=== PATIENT | male | born 1990 | race Caucasian/White ===

== ENCOUNTER 2024-02-06 09:16 | Outpatient (CLI) | payer OTHER, SELFPAY ==
[2024-02-19 14:50] VITALS: BMI 27.3
--- NOTE | 2024-02-19 14:50 | WPDHOMESLEEP ---
Sleep Study - Home Unattended Date of Study: 02/06/24 Ordering Provider: Patrice Delgado MD Interpreting Provider: Selena Alfaro, DO Home Sleep Study Type: Watch PAT Height: 1.93 m Weight: 102.058 kg Body Mass Index: 27.3 Neck Circumference (inches): 15.5 [place]: 17 Reason for Sleep Study Daytime hypersomnia Sleep History The patient is a 34-year-old male that had a sleep study ordered by his primary care physician for evaluation of sleep apnea.? He denies awakening from sleep short of breath.? He denies awakening at night with heartburn, belching or cough.? Sleep frequently snores and is frequently loud enough that others complain.? He occasionally has trouble sleeping when he has a cold.? He denies waking up gasping for air throughout the night.? He rarely has breathing problems at night observed by himself or others.? He frequently sweats excessively at night.? He denies having heart palpitations or irregular heartbeats during the night.? He occasionally falls asleep during the day but never while driving.? He denies sleep paralysis, cataplexy and hypnagogic/hypnopompic hallucinations.? He frequently has trouble at school or work due to sleepiness.? He denies feeling afraid of going sleep.? He denies having nightmares.? He occasionally remembers his dreams.? He frequently has thoughts racing through his mind.? He denies feeling sad or depressed.? He frequently has anxiety.? He denies having muscular tension.? He denies noticing parts of his body jerk.? He denies kicking during the night.? He denies having crawling and aching feelings in his legs and denies having leg pain during the night.? He rarely grinds his teeth during sleep but never awakens with morning jaw pain.? He is constantly bothered by pain during the day and occasionally awakened by pain during the night.? He constantly wakes up feeling stiff in the morning.? He rarely wakes up with sore or achy muscles.? He rarely wakes up with pain in the neck, spine and other joints.? He goes to bed between 7-10 p.m. on weekdays and between 7-8 p.m. on the weekends.? It takes him 30 minutes to fall asleep.? He wakes up 2-3 times throughout the night to urinate and is able to fall back asleep within 10 minutes.? He wakes up between 4-5 a.m. on weekdays and between 7-8 a.m. on the weekends.? He typically gets 6-7 hours of sleep per night.? He will stay in bed for 1 hour after waking up in the morning.? He currently lives with his and child.? He denies consuming any caffeinated beverages within 2 hours of bedtime.? He will engage in physical exercise before bedtime.? He will watch television before falling asleep.? He will take naps in the afternoon or the evening female are refreshing.? He consumes 1 caffeinated beverage per day. He denies tobacco, alcohol or recreational drug use. FORMERLY [facility] Past Medical History Medical History Healthy male adult Social History Social History Smoking status: Never smoker Gender identity (if verbalized by the patient): Male Medications Home Medications Medication Instructions Recorded Confirmed Type No Home Medications 01/17/24 01/17/24 History Sleep Procedure The sleep study was completed using StarShooterT a technically adequate device with seven channels: peripheral arterial tone, actigraphy, body position, snore, respiratory movement, pulse oximetry, sleep staging, and heart rate. Prior to using the device, the patient received verbal and written instructions for its application and was provided with the help desk phone number for additional telephonic instruction with 24-hour availability of qualified personnel to answer questions. The study was scored using CMS guidelines. Sleep Architecture The total recording time is 8 hrs, 47 min. The total sleep time is 6 hrs, 54 min. Sleep latency is 46 minutes. REM latency is 88 min
== END 2024-02-07 07:00 | disposition home or self-care (01) ==
LOC: ANHCSM 09:17
PROVIDERS: PCP Emergency Medicine; Visit Provider Emergency Medicine
DX: G47.30 Sleep apnea, unspecified (principal); G47.33 Obstructive sleep apnea (adult) (pediatric)
CPT/HCPCS: 95800

== ENCOUNTER 2024-02-22 08:29 | Outpatient (CLI) | payer OTHER, SELFPAY ==
[2024-02-22 15:30] LABS: Basophils Absolute Auto 0.1 K/mm3 (0.0-0.1); Basophils Percent Auto 0.7 % (0.2-1.2); Eosinophils Absolute Auto 0.7 K/mm3 (0-0.3); Eosinophils Percent Auto 8.5 % (0-4.4); Hematocrit 44.5 % (42.0-52.0); Hemoglobin 15.4 g/dL (14.0-18.0); Immature Granulocyte Absolute 0.06 K/mm3 (0.00-0.031); Immature Granulocyte Percent A 0.8 % (0-0.5); Lymphocytes Percent Auto 27.6 % (18.3-44.2); Mean Corpuscular HGB Conc 34.6 g/dl (32-36); Mean Corpuscular Hemoglobin 31.3 pg (26-34); Mean Corpuscular Volume 90.4 fl (80-100); Mean Platelet Volume 11.2 fl (7.4-10.4); Monocytes Absolute Auto 0.7 K/mm3 (0.1-0.6); Monocytes Percent Auto 8.7 % (2.6-8.5); Neutrophils Absolute Auto 4.1 K/mm3 (1.3-6.7); Neutrophils Percent Auto 53.7 % (45.5-73.1); Platelet Count Result 241 k/mm3 (150-375); Red Blood Count 4.92 M/mm3 (4.6-6.20); Red Cell Distribution Width 11.9 % (11.5-14.5); White Blood Count 7.6 K/mm3 (4.5-10.0)
[2024-02-22 15:37] LABS: Vitamin D 25 Hydroxy 33.7 ng/mL
[2024-02-22 15:50] LABS: Thyroid Stimulating Hormone Reflex 0.561 uIU/mL (0.465-4.68)
[2024-02-22 16:04] LABS: Alanine Aminotransferase 22 U/L (6-50); Albumin Level 4.6 g/dL (3.5-5.1); Alkaline Phosphatase 98 U/L (38-126); Anion Gap 8 mmol/L (4-12); Aspartate Amino Transferase 34 U/L (17-59); Bilirubin,Total 0.7 mg/dL (0.2-1.3); Blood Urea Nitrogen 12 mg/dL (9-20); Calcium 9.3 mg/dL (8.4-10.2); Carbon Dioxide 31 mmol/L (22-30); Chloride 102 mmol/L (98-107); Cholesterol 199 mg/dL (0-200); Estimated Glomerular Filt Rate > 60; Glucose 89 mg/dL (65-110); HDL Direct 53 mg/dL; Potassium 4.4 mmol/L (3.4-5.0); Sodium 141 mmol/L (137-145); Triglycerides 134 mg/dL (<150)
[2024-02-22 16:40] LABS: LDL Cholesterol Direct 125 mg/dL
[2024-02-24 23:43] LABS: Testosterone Total 469 ng/dL (250-1100)
== END 2024-02-22 08:30 | disposition home or self-care (01) ==
LOC: ANHGOSHLAB 08:30
PROVIDERS: PCP Emergency Medicine; Visit Provider Emergency Medicine
DX: R53.83 Other fatigue (principal); Z13.220 Encounter for screening for lipoid disorders
CPT/HCPCS: 36415; 80053; 80061; 82306; 82607; 84403; 84443; 85025

== ENCOUNTER 2024-07-23 21:24 | Emergency (ER) | payer OTHER, SELFPAY ==
[2024-07-23] VITALS (10 sets, daily range): BP systolic 127–147; BP diastolic 74–93; PULSE 97–107; RESP 12–22; TEMP 36.6; O2SAT 92–98
--- NOTE | ~2024-07-23 | XR_ITS ---
EXAMINATION: XR chest 2V DATE: 07/23/2024 22:47 INDICATION: Dyspnea. TECHNIQUE: Frontal and lateral views of the chest were obtained. COMPARISON: None. FINDINGS: A calcified left lung nodule is consistent with old granulomatous disease. There is no pneu monia, pleural effusion, or pneumothorax. The heart size is normal. There are changes of anterior fus ion procedure in cervical spine. IMPRESSION: 1. No acute cardiopulmonary disease. Reviewed, dictated and finalized at location [facility]
--- NOTE | 2024-07-23 22:35 | ECG_ITS ---
Test Date: 2024-07-23 23:06:15 Measurements Intervals [place] Rate: 94 P: 28 AL: 154 QRS: -38 QRSD: 94 T: 49 QT: 336 QTc: 421 Interpretive Statements SINUS RHYTHM LEFT AXIS DEVIATION DELAYED PRECORDIAL R/S TRANSITION BORDERLINE ECG No previous ECG available for comparison Electronically Signed On 07-24-2024 05:57:59 ACADEMIC DEAN by Dru Krishna D.O.
--- NOTE | 2024-07-23 22:36 | ED_ITS ---
HPI - SOB/Dyspnea General Chief Complaint: Shortness of Breath/Dyspnea Stated Complaint: SOB, fever, body aches Time Seen by Provider: 07/23/24 22:28 History of Present Illness HPI Narrative: 34-year-old male with history of JOSE presents to the emergency department for generalized body aches, fever of 100? at home, shortness of breath that started this morning. Patient states he felt mildly short of breath this morning, however when he took a nap this afternoon he woke up in a panic feeling like he could not catch his breath. He does have a history of JOSE but does not uses CPAP. He denies lower extremity edema, cough, hemoptysis, recent surgeries or hospitalizations, history of VTE. He is not on hormones. he is also reporting chest pressure in the center of his chest that is constant . States the chest pain is worse to touch, otherwise no aggravating or alleviating factors. Denies personal or family history of cardiac disease or CVA. He does not smoke. He is also reporting a small red irritated area to his right hip/lower abdomen for the past few days. No drainage from the area. Related Data Allergies Allergy/AdvReac Type Severity Reaction Status Date / Time atomoxetine [From Strattera] Allergy Unknown Verified 07/23/24 21:27 Review of Systems 2 Review of Systems: All systems reviewed & are unremarkable except as noted in HPI and below PMFSH Past Medical History Medical History Healthy male adult Social History Social History Smoking status: Never smoker Gender identity (if verbalized by the patient): Male Exam Narrative: GENERAL: Well-appearing, well-nourished, and in no acute distress. Anxious HEAD: Normocephalic, atraumatic. EYES: EOMI. ENT: Nares clear, no rhinorrhea or epistaxis. Mucous membranes moist. NECK: Supple. CHEST: Clear to auscultation. No respiratory distress. tenderness to the costosternal borders with no overlying skin changes HEART: Regular rate and rhythm. No murmur heard. Normal peripheral pulses. ABDOMEN: Soft, nontender, nondistended, normal active bowel sounds. EXTREMITIES: Normal range of motion. No edema. negative Homans bilaterally SKIN: pustule with 1 cm of surrounding erythema and warmth. No spontaneous drainage. No crepitus, no fluctuance, no induration NEURO: No focal deficits. Alert and oriented x3 Course Vital Signs Vital signs: Vital Signs Temperature 97.8 F 07/23/24 21:33 Pulse Rate 107 H 07/23/24 21:33 Respiratory Rate 18 07/23/24 21:33 Blood Pressure 144/93 H 07/23/24 21:33 Pulse Oximetry 98 07/23/24 21:33 Oxygen Delivery Room Air 07/23/24 21:33 Temperature 97.8 F 07/23/24 21:33 Pulse Rate 94 07/24/24 00:11 Respiratory Rate 13 07/24/24 00:11 Blood Pressure 127/74 07/23/24 22:51 Pulse Oximetry 95 07/24/24 00:12 Oxygen Delivery Room Air 07/24/24 00:12 MDM - SOB/Dyspnea MDM Narrative Medical decision making narrative: 34-year-old male with history of JOSE presents to the emergency department for multiple medical complaints including chest pressure, shortness of breath, body aches, lesion to his right 5th/abdomen. Triage vitals a tachycardia 107 which has since resolved. He is afebrile nontoxic appearing. He is satting 90% on room air no respiratory distress. Lung sounds are clear. Chest wall is tender to palpation. On exam he is found have a possible with 1 cm surrounding erythema and warmth consistent with cellulitis. Will provide topical antibiotics for this. While obtaining lab work, chest x-ray, EKG patient reported to nursing staff that he felt increasingly more short of breath. the patient was placed on 2 L nasal cannula for comfort by nursing staff. I evaluated the patient at bedside. His respiratory rate has been normal at 18 and his oxygen has been stable at 97% without O2. he appears anxious which is suspect is part of the source of his shortness of breath. Will provide IV Ativan pending remainder workup. CBC shows no leukocytosis or anemia. Chemistries are unremarkable. UA is unremarkable. COVID, flu and RSV are negative. Chest x-ray shows no acute cardiopulmonary findings. EKG shows sinus rhythm, normal FL interval, normal QRS duration, normal QTC, no ischemic changes. Troponin is undetectable. D- dimer within normal limits, wells score is low risk. COVID, flu RSV are negative. patient and family updated on workup. Upon re-evaluation he is resting comfortably in exam bed. Oxygen saturations are 95% on room air in no respiratory distress. He received IV Toradol and Ativan with improvement. Suspect combination of URI/ costochondritis/ anxiety/ noncompliance with CPAP. Advised to use the CPAP, will provide ibuprofen and advised follow-up with his PCP. strict ED return precautions discussed. He is agreeable to plan verbalized understanding. Discharged in stable condition Lab Data 07/23/24 23:42 07/23/24 23:42 Labs: Lab Results 07/23/24 Range/Units 23:42 WBC 7.4 (4.5-10.0) K/mm3 RBC 5.59 (4.6-6.20) M/mm3 Hgb 16.4 (14.0-18.0) g/dL Hct 46.9 (42.0-52.0) % MCV 83.9 (80-100) fl MCH 29.3 (26-34) pg MCHC 35.0 (32-36) g/dl RDW 13.1 (11.5-14.5) % Plt Count 179 (150-375) k/mm3 MPV 10.3 (7.4-10.4) fl Immature Gran % (Auto) 0.4 (0-0.5) % Neut % (Auto) 83.3 H (45.5-73.1) % Lymph % (Auto) 7.1 L (18.3-44.2) % [place] % (Auto) 7.9 (2.6-8.5) % Eos % (Auto) 1.0 (0-4.4) % Baso % (Auto) 0.3 (0.2-1.2) % Lymph # (Auto) 0.52 L (0.9-3.2) K/mm3 [place] # (Auto) 0.6 (0.1-0.6) K/mm3 Eos # (Auto) 0.1 (0-0.3) K/mm3 Baso # (Auto) 0.0 (0.0-0.1) K/mm3 Abs Immat Gran (auto) 0.03 (0.00-0.031) K/mm3 Absolute Neuts (auto) 6.1 (1.3-6.7) K/mm3 Absolute Nucleated RBC 0.000 (0.0-0.012) K/mm3 Nucleated RBC % 0.0 (0.0-0.2) % PT 13.4 (11.1-14.7) Seconds INR 1.0 APTT 28.6 (22.3-36.8) Seconds D-Dimer 0.39 (<0.48) ug/mL Sodium 132 L (137-145) mmol/L Potassium 4.0 (3.4-5.0) mmol/L Chloride 97 L (98-107) mmol/L Carbon Dioxide 27 (22-30) mmol/L Anion Gap 8 (4-12) mmol/L BUN 18 (9-20) mg/dL Creatinine 0.90 (0.7-1.3) mg/dL Estim Creat Clear Calc 123 ml/min Estimated GFR > 60 (59 - ) Glucose 106 (65-110) mg/dL Calcium 8.5 (8.4-10.2) mg/dL Total Bilirubin 0.8 (0.2-1.3) mg/dL AST 33 (17-59) U/L ALT 42 (6-50) U/L Alkaline Phosphatase 83 (38-126) U/L Troponin I < 0.012 (0.000-0.034) ng/mL NT-Pro-B Natriuret Pep < 20 (19.9-100) pg/mL Total Protein 7.0 (6.3-8.2) g/dL Albumin 4.2 (3.5-5.1) g/dL Urine Color Yellow (Yellow) Urine Appearance Clear (Clear) Urine pH 6.5 (5.0-9.0) Ur Specific [place] 1.015 (1.001-1.035) Urine Protein Negative (Negative) mg/dL Urine Glucose (UA) Negative (Negative) mg/dL Urine Ketones Negative (Negative) mg/dL Ur Blood (Man) Negative (Negative) Urine Nitrate Negative (Negative) Urine Bilirubin Negative (Negative) Urine Urobilinogen 0.2 (<2.0) mg/dL Leukocyte Esterase Rfl Negative (Negative) CHRISTOS/UL Influenza A (RT-PCR) Negative (Negative) Influenza B (RT-PCR) Negative (Negative) RSV (RT-PCR) Negative (Negative) SARS-CoV-2 RNA (RT-PCR) Negative (Negative) Discharge Plan Discharge Clinical Impression: JOSE (obstructive sleep apnea), Viral upper respiratory infection, C ostochondritis, Folliculitis Patient Disposition: Home, Self-Care Condition: Stable Instructions: Antibiotic Form, Costochondritis (DC), Upper Respiratory Infection (ED), Folliculitis (ED) Additional Instructions: please use your CPAP as directed. Take ibuprofen as needed for chest wall pain. Follow-up with your primary care provider. Use the antibiotic ointment on the area of redness. Return to the emergency department if you develop a fever, worsening chest pain or shortness of breath or other concerning symptoms. Prescriptions: New mupirocin 2 % ointment 1 applic topical BID Qty: 15 0RF ibuprofen 800 mg tablet 800 mg PO Q6H PRN (Reason: pain) Qty: 20 0RF No Action (DME) Resmed AirSense AutoPAP See Rx Instructions .Route .MEDSUPPLY Qty: 1 0RF Rx Instructions: Resmed AirSense 11 AutoPAP 5-15 cm H2O, CPAP mask/filters/tubing and heated humidity. acyclovir 800 mg tablet 800 mg PO TID Qty: 21 0RF Follow-up/Referrals: Patrice Delgado MD [Primary Care Provider] - Quality HEART score for chest pain patients History: slightly suspicious ECG: normal Age: < or = to 45 years Risk factors: no risk factors known Troponin: < or = to 1x normal limit Heart score: 0
--- NOTE | 2024-07-23 22:53 | PC.NURSE ---
PT on 2L O2. pt at 95% on room air. EDP made aware.
[2024-07-23] MEDS: LORazepam INJ (*CRX) 2 MG/ML VIAL 0.5 MG IV PUSH (23:17)
[2024-07-23] MEDS: KETOROLAC 30 MG/ML VIAL (*BKC) IV PUSH (23:19)
[2024-07-23 23:49] LABS: Basophils Percent Auto 0.3 % (0.2-1.2); Eosinophils Absolute Auto 0.1 K/mm3 (0-0.3); Hematocrit 46.9 % (42.0-52.0); Hemoglobin 16.4 g/dL (14.0-18.0); Immature Granulocyte Absolute 0.03 K/mm3 (0.00-0.031); Immature Granulocyte Percent A 0.4 % (0-0.5); Lymphocytes Absolute Auto 0.52 K/mm3 (0.9-3.2); Lymphocytes Percent Auto 7.1 % (18.3-44.2); Mean Corpuscular Hemoglobin 29.3 pg (26-34); Mean Corpuscular Volume 83.9 fl (80-100); Mean Platelet Volume 10.3 fl (7.4-10.4); Monocytes Absolute Auto 0.6 K/mm3 (0.1-0.6); Monocytes Percent Auto 7.9 % (2.6-8.5); Neutrophils Absolute Auto 6.1 K/mm3 (1.3-6.7); Neutrophils Percent Auto 83.3 % (45.5-73.1); Platelet Count Result 179 k/mm3 (150-375); Red Blood Count 5.59 M/mm3 (4.6-6.20); Red Cell Distribution Width 13.1 % (11.5-14.5); White Blood Count 7.4 K/mm3 (4.5-10.0)
[2024-07-23 23:59] LABS: Add Urine Microscopic? NO; Appearance Urine Clear (Clear); Bilirubin Urine Negative (Negative); Blood Urine Negative (Negative); Color Urine Yellow (Yellow); Glucose Urine UA Negative (Negative); Ketones Urine Negative (Negative); Leukocyte Esterase Ur Negative LEU/UL (Negative); Nitrate Urine Negative (Negative); Protein Urine Negative (Negative); Specific Grav Ur 1.015 (1.001-1.035); Urobilinogen Urine 0.2 mg/dL (<2.0); pH Urine 6.5 (5.0-9.0)
[2024-07-24] LABS: Prothrombin Time 13.4 Seconds (11.1-14.7)
[2024-07-24 00:01] LABS: Partial Thromboplastin Time 28.6 Seconds (22.3-36.8)
[2024-07-24 00:10] LABS: Alanine Aminotransferase 42 U/L (6-50); Albumin Level 4.2 g/dL (3.5-5.1); Alkaline Phosphatase 83 U/L (38-126); Anion Gap 8 mmol/L (4-12); Aspartate Amino Transferase 33 U/L (17-59); Bilirubin,Total 0.8 mg/dL (0.2-1.3); Blood Urea Nitrogen 18 mg/dL (9-20); Calcium 8.5 mg/dL (8.4-10.2); Carbon Dioxide 27 mmol/L (22-30); Chloride 97 mmol/L (98-107); D Dimer 0.39 ug/mL (<0.48); Estimated CRCL calculation 123 ml/min; Estimated Glomerular Filt Rate > 60; Glucose 106 mg/dL (65-110); Sodium 132 mmol/L (137-145)
[2024-07-24 00:11] VITALS: PULSE 94; RESP 13; O2SAT 95
[2024-07-24 00:12] VITALS: O2SAT 95
[2024-07-24 00:15] VITALS: PULSE 94; RESP 29; O2SAT 96
[2024-07-24 00:21] LABS: NT Pro B Type Natriuretic Pept < 20 pg/mL (19.9-100); Troponin I < 0.012 ng/mL (0.000-0.034)
[2024-07-24 00:25] LABS: Influenza A QL RT-PCR Negative (Negative); Influenza B QL RT-PCR Negative (Negative); RSV RNA, RT-PCR Negative (Negative); SARS-CoV-2 RNA PCR Negative (Negative)
[2024-07-24 00:54] VITALS: BP 124/73; PULSE 94; RESP 20; O2SAT 96
== END 2024-07-24 01:01 | disposition home or self-care (01) ==
PROVIDERS: Emergency Provider Physician Assistant; PCP Emergency Medicine
DX: J06.9 Acute upper respiratory infection, unspecified (principal); M94.0 Chondrocostal junction syndrome [Tietze]; L73.9 Follicular disorder, unspecified; Z20.822 Contact with and (suspected) exposure to COVID-19; G47.33 Obstructive sleep apnea (adult) (pediatric); R94.31 Abnormal electrocardiogram [ECG] [EKG]
CPT/HCPCS: 36415; 71046; 80053; 81003; 83880; 84484; 85025; 85380; 85610; 85730; 87637; 93005; 96374; 96375; 99284; J1885; J2060

== ENCOUNTER 2025-05-13 17:57 | Emergency (ER) | payer OTHER, SELFPAY ==
--- NOTE | ~2025-05-13 | XR_ITS ---
X-rays left forearm Indication: Injury Comparison: None Technique: 2 views left forearm Findings/Impression: 1. No fracture left forearm. 2. No radiopaque foreign body. Reviewed, dictated and finalized at location R.
[2025-05-13 17:58] VITALS: BP 136/84; PULSE 93; RESP 16; TEMP 36.7; O2SAT 97
--- OUTSIDE RECORDS SUMMARY | 2025-05-13 17:59 | XMS_ITS | Clinical Summary ---
Author Organization [facility] Address [address] [place] [id number] Care Team Providers Care Roller Pneumatic Name Role Phone Cesar Trinh MD Primary Care Provider [phone] Allergies No known active allergies Medications amoxicillin 500 mg tablet TK 1 T PO TID 07/22/2019 Active amoxicillin-clav ulanate (AUGMENTIN) 875-125 mg per tablet TK 1 T PO BID 08/05/2019 Active ketorolac (TORADOL) 10 mg tablet TK ONE T PO TID PRF PAIN 08/27/2019 Active levoFLOXacin (LEVAQUIN) 500 mg tablet TK 1 T PO D 08/21/2019 Active methylPREDNISolo ne (MEDROL DOSEPACK) 4 mg Dosepack TK PO UTD 09/18/2019 Active naproxen (NAPROSYN) 500 mg tablet TK 1 T PO BID 09/05/2019 Active ofloxacin (FLOXIN) 0.3 % otic solution INT 10 GTS AEA ONCE D FOR 7 DAYS 08/23/2019 Active naproxen (ALEVE) 220 mg tablet Take by mouth 2 (two) times a day with meals Active Active Problems No known active problems Surgical History Surgery Date Site/Laterality Comments NECK SURGERY 09/04/2018 - 09/03/2019 Social History Tobacco Use Types Packs/Day Years Used Date Smoking Tobacco: Never Alcohol Use Standard Drinks/Week Comments Yes 0 (1 standard drink = 0.6 oz pur e alcohol) Personal Safety Answer Date Recorded Getting School Help Needed Not on file 11/18 Sex and Gender Information Value Date Recorded Sex Assigned at Not on file Legal Sex Male 3:29 PM DIALYSIS RN Gender Identity Not on file Sexual Orientation Not on file Obstetrics History Last Filed Vital Signs Vital Sign Reading Time Taken Comments Blood Pressure - - Pulse - - Temperature - - Respiratory Rate - - Oxygen Saturation - - Inhaled Oxygen Concentration - - Weight 104.3 kg (230 lb) 10/25/2019 8:47 AM DIALYSIS RN Height 190.5 cm (6' 3) 10/25/2019 8:47 AM DIALYSIS RN Body Mass Index 28.75 10/25/2019 8:47 AM DIALYSIS RN Plan of Treatment Not on file Insurance [employer] Care Teams Roller Pneumatic Relationship Specialty Start Date End Date Cesar Trinh MD PCP - General Family Medicine 09/20/19
--- OUTSIDE RECORDS SUMMARY | 2025-05-13 18:19 | XMS_ITS | Encounter Summary ---
Author Organization [facility] Address [facility] [place] [address] Care Team Providers Care Sisal Picker Name Role Phone Cesar Trinh MD Primary Care Provider Encounter Details Date Type Department Care Team (Late st Contact Info) Description 02/09/2019 Abstract SFL CONVERSION [address] [place] [address] , Generic Conversion, Social History Tobacco Use Types Packs/Day Years Used Date Smoking Tobacco: Never Smokeless Tobacco: Former Alcohol Use Standard Drinks/Week Comments Yes 0 (1 standard drink = 0.6 oz pur e alcohol) OCCASIONALLY Sex and Gender Information Value Date Recorded Sex Assigned at Not on file Legal Sex Male 7:15 PM VENE[employer] Gender Identity Not on file Sexual Orientation Straight 10/17/2018 2: 22 PM [employer] documented as of this encounter Functional Status * RETIRED Are you deaf or do you have serious difficulty hearing Answer Date of Assessment Author Status No 10/17/2018 2:24 PM VENE[employer]INTER [employer]BACK Activ e * RETIRED Are you blind or do you have serious difficulty seeing, even when wearing glasses? Answer Date of Assessment Author Status No 10/17/2018 2:24 PM [employer] Acti ve * Do you have serious difficulty walking or climbing stairs? Answer Date of Assessment Author Status No 10/17/2018 2:24 PM [employer] Rachel Ventura RN Active * Do you have difficulty dressing or bathing? Answer Date of Assessment Author Status No 10/17/2018 2:24 PM [employer] Rachel Ventura RN Active * Because of a physical, mental, or emotional condition, do you have difficulty doing errands alone such as visiting a doctor's office or shopping? Answer Date of Assessment Author Status No 10/17/2018 2:24 PM [employer]BACK Rachel Ventura RN Active documented as of this encounter Mental Status * Because of a physical, mental, or emotional condition, do you have serious difficulty concentrating, remembering, or making decisions? Answer Entry Date Author Status No 10/17/2018 2:24 PM V[employer]BACK Rcahel Ventura RN Active documented in this encounter Plan of Treatment Not on file documented as of this encounter Visit Diagnoses Not on filedocumented in this encounter Additional Health Concerns Infection Onset Date Last Indicated Resolved Time COVID-19 Rule Out 04/30/2020 04/30/2020 05/01/2020 6:42 PM CDT COVID-19 Rule Out 06/25/2020 06/25/2020 06/27/2020 6:06 PM CDT COVID-19 Rule Out 07/12/2020 07/12/2020 07/13/2020 3:02 PM [employer] documented as of this encounter Care Teams Sisal Picker Relationship Specialty Start Date End Date Cesar Trinh MD [address] [place] [id number] PCP - General FAMILY PRACTICE 10/15/18 documented as of this encounter
--- NOTE | 2025-05-13 18:29 | ED_ITS ---
HPI - Extremity Injury (Upper) General Chief Complaint: Extremity Injury, Upper Stated Complaint: forearm pain Time Seen by Provider: 05/13/25 18:01 History of Present Illness HPI narrative: This is a 35-year-old male with no significant past medical history presents the ED for left forearm injury. Patient states he is in on prior for baseball and was hit by a volleyball in home plate to his left forearm. He states that he was initially not able to move his left thumb but this has improved. He was given 800 mg ibuprofen by the new product trainer at the field. He states he has worsening pain with rotation at his wrist. Related Data Allergies Allergy/AdvReac Type Severity Reaction Status Date / Time atomoxetine (From Strattera) Allergy Unknown Verified 07/23/24 21:27 Review of Systems Review of Systems: Gen.: Denies fevers or chills Eyes: Denies eye pain or visual change ENT: Denies congestion Respiratory: Denies shortness of breath or cough CV: Denies chest pain or palpitations GI: Denies abdominal pain nausea, emesis or diarrhea denies burning, urgency, frequency or hematuria Musculoskeletal: As per HPI Neuro: Denies numbness, tingling, weakness or focal weakness Skin: Denies rash Except as documented, all other systems reviewed and negative PMFSH Past Medical History Medical History Healthy male adult Social History Social History Smoking status: Never smoker Gender identity (if verbalized by the patient): Male Exam Narrative: APPEARANCE: No acute distress, nontoxic, resting in bed HEENT: Normocephalic, atraumatic, OMM RESPIRATORY: No respiratory distress CARDIOVASCULAR: Appears well perfused ABDOMINAL: Nondistended MUSCULOSKELETAl: Tenderness palpation to the midshaft left radius, pain over this area with rotation at the left wrist. Neurovascularly intact distally. No obvious deformities. NEURO: Awake and alert. SKIN:: Warm, dry. No rashes lesions or abrasions PSYCHIATRIC: Normal affect/mood, Course Vital Signs Vital signs: Vital Signs Temperature 98.1 F 05/13/25 17:58 Pulse Rate 93 05/13/25 17:58 Respiratory Rate 16 05/13/25 17:58 Blood Pressure 136/84 05/13/25 17:58 Pulse Oximetry 97 05/13/25 17:58 Temperature 98.1 F 05/13/25 17:58 Pulse Rate 93 05/13/25 17:58 Respiratory Rate 16 05/13/25 17:58 Blood Pressure 136/84 05/13/25 17:58 Pulse Oximetry 97 05/13/25 17:58 MDM - Extremity Injury (Upper) MDM Narrative Medical decision making narrative: 35-year-old male who presented to the ED for left arm injury after being hit by a baseball. On initial evaluation, patient was in distress and afebrile, he would was stable. He did have a developing hematoma to his left proximal forearm over the left radius. X-ray showed no evidence of fractures. Patient likely has a contusion possibly a developing hematoma. No evidence of compartment syndrome at this time. Patient will be wrapped with Juan Alberto wrap. He was educated on rice therapy. He was educated on Tylenol ibuprofen use. He is advised follow-up with PCP in the next week for evaluation. Patient was agreeable to this plan. Given strict return precautions. Differential Diagnosis Differential diagnosis: Likely other (Contusion, sprain, strain, fracture) Medical Records Attestation: I reviewed the patient's medical records. Imaging Data Radiologist's impression: X-rays left forearm Indication: Injury Comparison: None Technique: 2 views left forearm Findings/Impression: 1. No fracture left forearm. 2. No radiopaque foreign body. Discharge Plan Discharge Clinical Impression: Contusion Qualifiers: Encounter type: initial encounter Contusion area: forearm Laterality: left Qualified Code(s): S50.12XA - Contusion of left forearm, initial encounter Patient Disposition: Home Condition: Stable Instructions: Antibiotic Form, Contusion in Adults (ED) Additional Instructions: You may take Tylenol ibuprofen for your pain. Apply ice 15 minutes on 15 minutes off. Keep the Juan Alberto wrap applied to limit swelling. Follow-up with the PCP the next week for re-evaluation. Return to ED for any new or worsening symptoms. For pain, discomfort or temperature greater than or equal to 100.8 ?F please alternate the following 2 medications as needed. First medication- acetaminophen/Tylenol- 1000mg every 6-8 hours as needed for above indications. Second medication- ibuprofen/Motrin-600mg every 6-8 hours as needed for above indication. Patient Language: American Prescriptions: No Action mupirocin 2 % ointment 1 applic topical BID Qty: 15 0RF ibuprofen 800 mg tablet 800 mg PO Q6H PRN (Reason: pain) Qty: 20 0RF acyclovir 800 mg tablet 800 mg PO TID Qty: 21 0RF (DME) Resmed AirSense AutoPAP See Rx Instructions .Route .MEDSUPPLY Qty: 1 0RF Rx Instructions: Resmed AirSense 11 AutoPAP 5-15 cm H2O, CPAP mask/filters/tubing and heated humidity. Follow-up/Referrals: Kyler,Karla Leos, SEWING MACHINE OPERATOR PAPER [employer]AGS [Primary Care Provider, Unknown]
== END 2025-05-13 18:35 | disposition home or self-care (01) ==
PROVIDERS: Emergency Provider Student in an Organized Health Care Education/Training Program; PCP Nurse Practitioner
DX: S50.12XA Contusion of left forearm, initial encounter (principal); W21.03XA Struck by baseball, initial encounter; Y93.81 Activity, refereeing a sports activity
CPT/HCPCS: 73090; 99283